=== PATIENT | female | born 1945 | race Caucasian/White ===

== ENCOUNTER 2016-09-29 10:22 | Inpatient (IN) | payer MEDICARE, OTHER ==
[~2016-09-29] VITALS: Ht 149.9 cm; Wt 44.2 kg
[~2016-09-29 10:22] MED LIST: AMLO-512 PO; DONE5TAB PO; METF500T4 PO; METO25 PO; PRAV40 PO
[2016-09-29 10:42] LABS: GLUCOSE,POINT OF CARE 114 MG/DL (70-110)
[2016-09-29 11:40] LABS: BASOPHILS % (AUTO) 0.2 % (0.0-2.0); EOSINOPHILS % (AUTO) 0 % (1.0-6.0); HEMATOCRIT 41.4 % (36-46); HEMOGLOBIN 13.6 g/dL (12.0-16.0); LYMPHOCYTES # (AUTO) 0.9 K/uL (1.0-4.8); LYMPHOCYTES % (AUTO) 10.7 % (22.0-44.0); MEAN CORPUSCULAR HEMOGLOBIN 30.9 pg (26.0-34.0); MEAN CORPUSCULAR HGB CONC 32.9 G/dL (31.0-37.0); MEAN CORPUSCULAR VOLUME 94 fL (80-100); MONOCYTES # (AUTO) 0.2 K/uL (0.1-1.0); MONOCYTES % (AUTO) 2.9 % (2.0-9.0); NEUTROPHILS # (AUTO) 7.4 K/uL (1.8-7.7); PLATELET COUNT (AUTO) 234 K/uL (150-450); RED BLOOD CELL COUNT(AUTO) 4.41 MIL/uL (4.00-5.20); RED CELL DISTRIBUTION WIDTH 13.3 % (11.5-14.5); WHITE BLOOD COUNT (AUTO) 8.6 K/uL (4.5-11.0)
[2016-09-29 11:41] LABS: NEUTROPHILS % (AUTO) 86.2 % (40.0-70.0)
[2016-09-29 11:50] LABS: ANION GAP 8 mmol/L (8-16); CALCIUM, TOTAL 9.8 mg/dL (8.8-10.5); CARBON DIOXIDE 29 mmol/L (22-29); CHLORIDE 102 mmol/L (98-107); CREATININE 0.54 mg/dL (0.60-1.30); GLOMERULAR FILTR. RATE CALC > 60 mL/min (>60); POTASSIUM 3.6 mmol/L (3.5-5.1); SODIUM SERUM 139 mmol/L (136-145); UREA NITROGEN, BLOOD 11 mg/dL (7-18)
[2016-09-29 11:55] LABS: ALANINE AMINOTRANSFERASE 21 U/L (12-78); ALBUMIN 3.8 g/dL (3.4-5.0); ASPARTATE AMINOTRANSFERASE 18 U/L (15-37); BILIRUBIN,TOTAL 0.5 mg/dL (0.1-1.0); TOTAL PROTEIN, SERUM 6.8 g/dL (6.4-8.2)
[2016-09-29] MEDS ORDERED: LORazepam 1 MG TABLET PO ONE (17:15)
[2016-09-29 17:16] LABS: APPEARANCE,URINE CLEAR (CLEAR); GLUCOSE, URINE (UA) NEGATIVE (NEGATIVE); KETONES,URINE NEGATIVE (NEGATIVE); LEUKOCYTE ESTERASE ,URINE NEGATIVE (NEGATIVE); OCCULT BLOOD,URINE NEGATIVE (NEGATIVE); PH,URINE 7.5 (5.0-8.0); PROTEIN,URINE NEGATIVE (NEGATIVE)
[2016-09-29 17:22] LABS: ADD UA MICROSCOPIC NO
[2016-09-29 20:19] VITALS: BP 146/68
[2016-09-29] MEDS ORDERED: ZOLPIDEM TARTRATE 5 MG TABLET PO PRN (20:30)
[2016-09-29] MEDS ORDERED: ALBUTEROL SULFATE 2.5 MG/0.5 ML NEB SOLUTION NEB PRN (20:30)
[2016-09-29] MEDS ORDERED: IPRATROPIUM BROMIDE 0.5 MG/2.5 ML NEB SOLUTION NEB PRN (20:30)
[2016-09-29] MEDS ORDERED: ONDANSETRON HCL 4 MG/2 ML VIAL IVP PRN (20:30)
[2016-09-29] MEDS: DOCUSATE SODIUM 100 MG CAPSULE PO SCH (21:00)
[2016-09-29] MEDS: HEPARIN SODIUM,PORCINE 5,000 UNITS/ML VIAL SQ SCH (22:56)
[2016-09-29] MEDS ORDERED: PNEUMOCOCCAL VACCINE POLYVALENT 0.5 ML VIAL [PPSV23] IM ONE (23:45)
[2016-09-30] VITALS (7 sets, daily range): BP systolic 121–151; BP diastolic 58–77
[2016-09-30] MEDS ORDERED: DEXTROSE 50%-WATER 25 GM/50 ML SYRINGE IVP PRN ×2 (01:30)
[2016-09-30] MEDS: ACETAMINOPHEN 325 MG TABLET PO PRN ×3 (05:49→15:14)
[2016-09-30 05:52] LABS: GLUCOSE,POINT OF CARE 81 MG/DL (70-110)
[2016-09-30] MEDS ORDERED: DONEPEZIL HCL 5 MG TABLET PO SCH (09:00)
[2016-09-30] MEDS: AmLODIPine BESYLATE 10 MG TABLET PO SCH (09:02)
[2016-09-30] MEDS: PRAVASTATIN SODIUM 40 MG TABLET PO SCH (09:02)
[2016-09-30] MEDS: HEPARIN SODIUM,PORCINE 5,000 UNITS/ML VIAL SQ SCH ×3 (09:02→23:56)
[2016-09-30] MEDS: DOCUSATE SODIUM 100 MG CAPSULE PO SCH ×2 (09:02→20:35)
[2016-09-30] MEDS: PANTOPRAZOLE SODIUM 40 MG DR TABLET PO SCH (09:02)
[2016-09-30] MEDS: METOPROLOL TARTRATE 25 MG TABLET PO SCH (09:02)
[2016-09-30] MEDS: MetFORMIN HCL 500 MG TABLET PO SCH (09:03)
[2016-09-30 11:57] LABS: GLUCOSE,POINT OF CARE 113 MG/DL (70-110)
[2016-09-30 18:07] LABS: GLUCOSE,POINT OF CARE 130 MG/DL (70-110)
[2016-09-30] MEDS: DONEPEZIL HCL 10 MG TABLET PO SCH (20:36)
[2016-09-30] MEDS: RisperiDONE 0.5 MG TABLET PO SCH (20:36)
[2016-09-30 20:41] LABS: GLUCOSE,POINT OF CARE 126 MG/DL (70-110)
[2016-10-01 04:13] VITALS: BP 141/68
[2016-10-01 06:02] LABS: GLUCOSE,POINT OF CARE 99 MG/DL (70-110)
[2016-10-01 07:15] VITALS: BP 141/66
[2016-10-01] MEDS: MetFORMIN HCL 500 MG TABLET PO SCH (08:55)
[2016-10-01] MEDS: HEPARIN SODIUM,PORCINE 5,000 UNITS/ML VIAL SQ SCH ×3 (08:55→23:35)
[2016-10-01] MEDS: DOCUSATE SODIUM 100 MG CAPSULE PO SCH ×2 (08:56→20:27)
[2016-10-01] MEDS: AmLODIPine BESYLATE 10 MG TABLET PO SCH (08:56)
[2016-10-01] MEDS: METOPROLOL TARTRATE 25 MG TABLET PO SCH (08:56)
[2016-10-01] MEDS: PANTOPRAZOLE SODIUM 40 MG DR TABLET PO SCH (08:57)
[2016-10-01] MEDS: PRAVASTATIN SODIUM 40 MG TABLET PO SCH (09:01)
[2016-10-01 11:37] LABS: GLUCOSE,POINT OF CARE 87 MG/DL (70-110)
[2016-10-01 11:58] VITALS: BP 141/71
[2016-10-01] MEDS: INSULIN ASPART 100 UNITS/ML SQ PRN ×2 (12:09→16:44)
[2016-10-01 15:00] VITALS: BP 143/80
[2016-10-01] MEDS: ACETAMINOPHEN 325 MG TABLET PO PRN (16:34)
[2016-10-01 18:17] LABS: GLUCOSE,POINT OF CARE 97 MG/DL (70-110)
[2016-10-01 19:15] VITALS: BP 151/64
[2016-10-01] MEDS: RisperiDONE 0.5 MG TABLET PO SCH (20:27)
[2016-10-01] MEDS: DONEPEZIL HCL 10 MG TABLET PO SCH (20:27)
[2016-10-01 20:37] LABS: GLUCOSE,POINT OF CARE 112 MG/DL (70-110)
[2016-10-01 23:46] VITALS: BP 150/68
[2016-10-02 03:59] VITALS: BP 143/60
[2016-10-02] MEDS: ACETAMINOPHEN 325 MG TABLET PO PRN ×2 (04:37→18:06)
[2016-10-02 05:22] LABS: GLUCOSE,POINT OF CARE 102 MG/DL (70-110)
[2016-10-02] MEDS: AmLODIPine BESYLATE 10 MG TABLET PO SCH (08:16)
[2016-10-02] MEDS: MetFORMIN HCL 500 MG TABLET PO SCH (08:16)
[2016-10-02] MEDS: DOCUSATE SODIUM 100 MG CAPSULE PO SCH ×2 (08:16→23:59)
[2016-10-02] MEDS: PANTOPRAZOLE SODIUM 40 MG DR TABLET PO SCH (08:17)
[2016-10-02] MEDS: HEPARIN SODIUM,PORCINE 5,000 UNITS/ML VIAL SQ SCH ×3 (08:17→23:59)
[2016-10-02] MEDS: PRAVASTATIN SODIUM 40 MG TABLET PO SCH (08:17)
[2016-10-02] MEDS: METOPROLOL TARTRATE 25 MG TABLET PO SCH (08:17)
[2016-10-02 08:44] VITALS: BP 135/53
[2016-10-02] MEDS: LORazepam 2 MG/ML VIAL IVP PRN ×2 (10:58→20:16)
[2016-10-02] MEDS: INSULIN ASPART 100 UNITS/ML SQ PRN ×2 (14:46→16:40)
[2016-10-02 15:53] VITALS: BP 125/64
[2016-10-02 18:07] LABS: GLUCOSE,POINT OF CARE 110 MG/DL (70-110)
[2016-10-02] MEDS: DONEPEZIL HCL 10 MG TABLET PO SCH (20:14)
[2016-10-02] MEDS: RisperiDONE 0.5 MG TABLET PO SCH (20:15)
[2016-10-02 20:30] VITALS: BP 131/66
[2016-10-02 23:30] VITALS: BP 119/62
[2016-10-03 03:30] VITALS: BP 122/66
[2016-10-03 08:39] VITALS: BP 159/63
[2016-10-03] MEDS: AmLODIPine BESYLATE 10 MG TABLET PO SCH (08:58)
[2016-10-03] MEDS: METOPROLOL TARTRATE 25 MG TABLET PO SCH (08:58)
[2016-10-03] MEDS: PRAVASTATIN SODIUM 40 MG TABLET PO SCH (08:58)
[2016-10-03] MEDS: DOCUSATE SODIUM 100 MG CAPSULE PO SCH ×2 (08:58→20:04)
[2016-10-03] MEDS: PANTOPRAZOLE SODIUM 40 MG DR TABLET PO SCH (08:58)
[2016-10-03] MEDS: ACETAMINOPHEN 325 MG TABLET PO PRN ×3 (08:59→20:04)
[2016-10-03] MEDS: HEPARIN SODIUM,PORCINE 5,000 UNITS/ML VIAL SQ SCH ×3 (08:59→23:14)
[2016-10-03] MEDS: MetFORMIN HCL 500 MG TABLET PO SCH (08:59)
[2016-10-03 11:47] LABS: GLUCOSE,POINT OF CARE 87 MG/DL (70-110)
[2016-10-03 11:47] LABS: GLUCOSE,POINT OF CARE 102 MG/DL (70-110)
[2016-10-03 16:38] VITALS: BP 141/58
[2016-10-03 17:17] LABS: GLUCOSE,POINT OF CARE 86 MG/DL (70-110)
[2016-10-03 19:51] VITALS: BP 149/60
[2016-10-03] MEDS: LORazepam 0.5 MG TABLET PO PRN (20:04)
[2016-10-03] MEDS: RisperiDONE 0.5 MG TABLET PO SCH (20:04)
[2016-10-03] MEDS: DONEPEZIL HCL 10 MG TABLET PO SCH (20:04)
[2016-10-03 22:52] LABS: GLUCOSE,POINT OF CARE 90 MG/DL (70-110)
[2016-10-04 00:13] VITALS: BP 139/55
[2016-10-04 03:00] VITALS: BP 142/57
[2016-10-04 07:23] LABS: GLUCOSE COMMENT 1 Juice/Food/D50 Given; GLUCOSE,POINT OF CARE 66 MG/DL (70-110)
[2016-10-04 07:23] LABS: GLUCOSE COMMENT 1 Juice/Food/D50 Given; GLUCOSE,POINT OF CARE 60 MG/DL (70-110)
[2016-10-04 07:26] LABS: GLUCOSE,POINT OF CARE 96 MG/DL (70-110)
[2016-10-04] MEDS: AmLODIPine BESYLATE 10 MG TABLET PO SCH (08:05)
[2016-10-04] MEDS: DOCUSATE SODIUM 100 MG CAPSULE PO SCH (08:05)
[2016-10-04] MEDS: METOPROLOL TARTRATE 25 MG TABLET PO SCH (08:06)
[2016-10-04] MEDS: PANTOPRAZOLE SODIUM 40 MG DR TABLET PO SCH (08:06)
[2016-10-04] MEDS: MetFORMIN HCL 500 MG TABLET PO SCH (08:06)
[2016-10-04] MEDS: HEPARIN SODIUM,PORCINE 5,000 UNITS/ML VIAL SQ SCH ×2 (08:06→16:00)
[2016-10-04] MEDS: PRAVASTATIN SODIUM 40 MG TABLET PO SCH (08:06)
[2016-10-04] MEDS: LORazepam 2 MG/ML VIAL IVP PRN (08:09)
[2016-10-04] MEDS: LORazepam 0.5 MG TABLET PO PRN (12:08)
[2016-10-04 14:01] LABS: GLUCOSE,POINT OF CARE 119 MG/DL (70-110)
[2016-10-04 15:20] VITALS: BP 138/59
== END 2016-10-04 17:05 | DRG 57 ==
LOC: EEVIPCON 10:23 → EMS 10:23 → 6N 18:09
PROVIDERS: ADMIT Hospitalist; ATTEND Hospitalist
DX: G30.9 Alzheimer's disease, unspecified (principal); F02.81 Dementia in other diseases classified elsewhere, unspecified severity, with behavioral disturbance; E11.9 Type 2 diabetes mellitus without complications; I10 Essential (primary) hypertension; E78.00 Pure hypercholesterolemia, unspecified; E78.5 Hyperlipidemia, unspecified; Z79.899 Other long term (current) drug therapy; Z79.84 Long term (current) use of oral hypoglycemic drugs
CPT/HCPCS: 82962; 87081; 97161; 97162; 97165; 99285; G0480; J1644; J2060; J2405

== ENCOUNTER → 2016-12-20 | Outpatient (CLI) | payer MEDICARE, OTHER | END | disposition home or self-care (01) | LOC: RADMN 12:38 | PROVIDERS: ATTEND Hospitalist | DX: G31.9 Degenerative disease of nervous system, unspecified (principal); I67.2 Cerebral atherosclerosis; R90.82 White matter disease, unspecified; I65.29 Occlusion and stenosis of unspecified carotid artery | CPT/HCPCS: 70450 ==